=== PATIENT | male | born 1970 | race Caucasian/White ===

== ENCOUNTER 2016-08-01 01:51 | Inpatient (IN) | payer BC ==
[~2016-08-01] VITALS: Ht 170.2 cm; Wt 84.4 kg
[2016-08-01] MEDS ORDERED: Ibuprofen 400 MG TAB ONE (09:21)
[2016-08-01] MEDS ORDERED: HALOPERIDOL 5 MG TAB PO PRN (15:05)
[2016-08-01] MEDS ORDERED: MAG HYDROX 30 ML UDC PO PRN (15:05)
[2016-08-01] MEDS ORDERED: TRAZODONE 50 MG TAB PO PRN (15:05)
[2016-08-01] MEDS ORDERED: ACETAMINOPHEN 325 MG TAB PO PRN (15:05)
[2016-08-01] MEDS ORDERED: DIPHENHYDRAMINE 50 MG/ML VIAL IM PRN (15:05)
[2016-08-01] MEDS ORDERED: DIPHENHYDRAMINE 50 MG CAP PO PRN (15:05)
[2016-08-01] MEDS ORDERED: LORAZEPAM 2 MG/ML VIAL IM PRN (15:05)
[2016-08-01] MEDS ORDERED: HALOPERIDOL 5 MG/ML VIAL IM PRN (15:05)
[2016-08-01] MEDS ORDERED: LORAZEPAM 2 MG TAB PO PRN (15:05)
[2016-08-01] MEDS ORDERED: ALU/MAG/SIM 30 ML UDC PO PRN (15:05)
[2016-08-01 15:12] VITALS: BMI 29.1
[2016-08-01 15:13] VITALS: BP_SYST 151; RESP 16; TEMP 98.5
[2016-08-01] MEDS: NICOTINE 21 MG/24 HR TRANSDERM SCH (15:31)
[2016-08-01 19:00] VITALS: BP_SYST 143; RESP 18; TEMP 98.4
[2016-08-02 08:09] VITALS: BP_SYST 147; RESP 18; TEMP 97.7
[2016-08-02] MEDS: MULTIVITS/MINERALS (THERAGRAN M) TAB PO SCH (09:00)
[2016-08-02] MEDS: NICOTINE 21 MG/24 HR TRANSDERM SCH (09:00)
[2016-08-02] MEDS: ESCITALOPRAM 10 MG TAB PO SCH (12:40)
[2016-08-02 19:08] VITALS: BP_SYST 156; RESP 20; TEMP 97.9
[2016-08-03 07:00] VITALS: BP_SYST 148; RESP 18; TEMP 98.1
[2016-08-03] MEDS: MULTIVITS/MINERALS (THERAGRAN M) TAB PO SCH (09:00)
[2016-08-03] MEDS: NICOTINE 21 MG/24 HR TRANSDERM SCH (09:00)
[2016-08-03] MEDS: ESCITALOPRAM 10 MG TAB PO SCH (09:12)
[2016-08-03 19:01] VITALS: BP_SYST 156; RESP 16; TEMP 98.4
[2016-08-04 08:19] VITALS: BP_SYST 127; RESP 18; TEMP 97.8
[2016-08-04] MEDS: ESCITALOPRAM 10 MG TAB PO SCH (08:50)
[2016-08-04] MEDS: MULTIVITS/MINERALS (THERAGRAN M) TAB PO SCH (08:51)
[2016-08-04] MEDS: NICOTINE 21 MG/24 HR TRANSDERM SCH (08:51)
[2016-08-04] MEDS ORDERED: LISINOPRIL 20 MG TAB PO SCH (09:00)
[2016-08-04 10:17] VITALS: BP_SYST 127; RESP 18; TEMP 97.8
== END 2016-08-04 12:49 | disposition home or self-care (01) | DRG 885 ==
LOC: ER 01:51 → EMR 14:01 → PSY 14:56
PROVIDERS: ADMIT Psychiatry & Neurology Psychiatry; ATTEND Psychiatry & Neurology Psychiatry
CPT/HCPCS: 99254